=== PATIENT | male | born 1980 | race Caucasian/White ===

== ENCOUNTER 2025-05-21 13:42 | Emergency (ER) | payer OTHER, SELFPAY ==
--- NOTE | 2025-05-21 13:44 | ED_ITS ---
HPI - URI/Sore Throat General Chief Complaint: Upper Respiratory Infection Stated Complaint: Flu Like Time Seen by Provider: 05/21/25 13:43 Source: patient Mode of arrival: ambulatory Limitations: no limitations History of Present Illness HPI Narrative: Chilango is a 44-year-old male patient presenting to the clinic today with complaints of of runny nose, cough, body aches, fevers, chills, nausea, and feeling overall weak. He reports his symptoms started Friday night. Denies any vomiting or diarrhea. Denies chest pain or shortness of breath. Has been taking Tylenol and ibuprofen for his symptoms. Last dose of Tylenol was 3:00 a.m. this morning. Rates his pain 5/10 currently. Related Data Allergies Allergy/AdvReac Type Severity Reaction Status Date / Time No Known Allergies Allergy Verified 05/21/25 13:49 Review of Systems Review of Systems: Pertinent positives per HPI. Patient denies any rash, headache, visual changes, dizziness, shortness of breath, chest pain, palpitations, vomiting, diarrhea, constipation, abdominal pain, or any urinary issues. PMFSH Comments At the time of my signature, I reviewed and agree with the nursing past medical, surgical, social, and family history. There is no relevant family history pertinent to the patient complaint. Exam Narrative: General: Well-developed, well nourished, acutely ill appearing. Head: Normocephalic, atraumatic Eyes: Pupils equally round and reactive to light bilaterally, EOM intact, sclera and conjunctive clear, no discharge, lids normal Ears: TMs intact and clear, ear canals clear, no drainage, grossly hearing normal. Nose: Nares patent, clear nasal discharge, no inflammation, no sinus tenderness. Mouth: Oral pharynx red without lesions or masses, good dentition, MMM. PND Neck: Supple, trachea midline, no enlargement of anterior or posterior cervical nodes, no thyroid masses or goiter palpable. Cardio: Regular rate and rhythm, s1 and s2 normal, no murmur appreciated. Resp: Clear to auscultation bilaterally, no rhonchi, rales, wheezing or rubs Course Course Emergency Course: Portions of this record may have been created with voice recognition software. Level of Care: Express Care Visit Vital Signs Vital signs: Vital Signs Temperature 36.6 C 05/21/25 14:01 Pulse Rate 81 05/21/25 14:01 Respiratory Rate 18 05/21/25 14:01 Blood Pressure 117/74 05/21/25 14:01 Pulse Oximetry 98 05/21/25 14:01 Oxygen Delivery Room Air 05/21/25 14:01 Temperature 36.6 C 05/21/25 14:01 Pulse Rate 81 05/21/25 14:01 Respiratory Rate 18 05/21/25 14:01 Blood Pressure 117/74 05/21/25 14:01 Pulse Oximetry 98 05/21/25 14:01 Oxygen Delivery Room Air 05/21/25 14:01 Vital signs reviewed MDM - URI/Sore Throat MDM Narrative Medical decision making narrative: At the time of visit patient is resting comfortably on the exam table. Patient appears to be nontoxic. Complaints of of runny nose, cough, body aches, fevers, chills, nausea, and feeling overall weak. He reports his symptoms started Friday night. Denies any vomiting or diarrhea. Denies chest pain or shortness of breath. Has been taking Tylenol and ibuprofen for his symptoms. Last dose of Tylenol was 3:00 a.m. this morning. Rates his pain 5 at 10 currently. On exam patient has TMs intact and clear, clear nasal drainage, nares patent, oral pharynx mildly red with postnasal drip, heart rates regular rate and rhythm, lung sounds are clear. Labs: COVID, influenza, and strep test were performed. COVID testing was p ositive. Influenza and strep test were negative. Plan: Patient has COVID. Prescription for Paxlovid was sent to the pharmacy as patient is having moderate symptoms. Risk and benefits were reviewed. Supportive measures were discussed with the patient and they voiced understanding discharge instructions and agrees to treatment plan. Return precautions reviewed Differential Diagnosis Differential diagnosis: Likely upper respiratory infection, otitis media, sinusitis, viral infection, bronchitis, influenza, pharyngitis and other Discharge Plan Discharge Clinical Impression: COVID-19 Patient Disposition: Home Condition: Stable Instructions: Antibiotic Form, How to Recover from COVID-19 at Home (ED) Additional Instructions: Take prescription medications only as prescribed-Paxlovid Increase fluids and stay well hydrated May take Tylenol or motrin as directed on bottle for pain/fever May use Flonase 1 spray in each nare daily May take OTC antihistamines such as Zyrtec or Claritin daily as directed on bottle May apply Vicks vapor rub to chest to open sinuses Sinus rinses for congestion Cepacol spray, cough drops, throat lozenges, warm tea with honey/lemon, gargle salt water to soothe throat BRAT diet for diarrhea Clear liquids x 24 hours then advance as tolerated for nausea/vomiting Go to the ED if you develop a worsening in your condition- high fever not controlled by Tylenol or Motrin, dehydration, weakness, lethargy, shortness of breath, or chest pain. Follow up with your PCP in 3-5 days if symptoms persist. Patient Language: Libyan Prescriptions: New Paxlovid 300 mg (150 mg x 2)-100 mg tablets,dose pack See Rx Instructions PO .COMPLEX Qty: 30 0RF Rx Instructions: take TWO 150 mg tablets of nirmatrelvir with ONE 100 mg tablet of ritonavir twice daily for 5 days ondansetron 8 mg tablet,disintegrating 8 mg PO Q8H PRN (Reason: nausea and vomiting) 3 Days Qty: 10 0RF Follow-up/Referrals: Alex,Vee Guerrero APRN [Primary Care Provider, Unknown] Time of Disposition: 14:01 Quality NIHSS Nursing Documentation ED NIHSS nursing documentation: reviewed/agree
[2025-05-21 14:01] VITALS: BP 117/74; PULSE 81; RESP 18; TEMP 36.6; O2SAT 98
[2025-05-21 14:25] LABS: EDCOVIDSCREEN Positive (Negative); EDINFLUASCREEN Negative (Negative); EDINFLUBSCREEN Negative (Negative); EDSTREPNEGPOS1 Negative (Negative)
== END 2025-05-21 14:20 | disposition home or self-care (01) ==
PROVIDERS: Emergency Provider Nurse Practitioner Family; PCP Registered Nurse
DX: U07.1 COVID-19 (principal)
CPT/HCPCS: 87426; 87804; 87880; 99203; G0463